=== PATIENT | female | born 1995 | race Caucasian/White ===

== ENCOUNTER 2017-05-18 08:16 | Emergency (ER) | payer BC, OTHER ==
[2017-05-18] MEDS ORDERED: Ondansetron HCl/PF 4 MG/2 ML Vial ONE (08:40)
[2017-05-18 08:49] LABS: Bacteria/HPF 3+ HPF (None Seen); Bilirubin Small (Negative); Blood, Urine Negative (Negative); Clarity Slightly Cloudy (Clear); Glucose, Urine (Dipstick) Negative (Negative); Leukocyte Negative (Negative); Nitrite Negative (Negative); Protein, Urine (Dipstick) 30 mg/dL (Neg-Trace); RBC/HPF 0-3 HPF (0-3); Specific Gravity, Urine Greater than 1.035 (1.002-1.036); Urobilinogen 0.2 mg/dL (0.2-1.0)
[2017-05-18 08:50] LABS: Crystals/HPF None Seen HPF (Negative); Hyaline Casts/LPF NONE SEEN LPF (0-3 Hyaline)
[2017-05-18 08:52] LABS: #Basophils 0.1 thou/uL (0.0-0.2); #Lymphocytes 0.5 thou/uL (1.20-3.40); #Monocytes 0.2 thou/uL (0.11-0.59); %Basophils 0.5 % (0.0-1.0); %Eosinophils 0.1 % (0.0-10.0); %Lymphocytes 4.4 % (28.0-48.0); %Monocytes 2.1 % (0.0-4.0); Hemoglobin 11.4 g/dL (12.0-16.0); Mean Corpuscular HGB CONC 33.4 g/dL (32.0-36.0); Mean Corpuscular Hemoglobin 30.7 pg (25.0-35.0); Mean Platelet Volume 9.5 fL (7.4-10.4); Platelet Count 178 thou/uL (130-400); RBC Distribution Width 11.4 % (11.5-14.5); White Blood Cell (WBC) Count 11.8 thou/uL (4.8-10.8)
[2017-05-18 08:59] LABS: BHCG - Serum Negative (NEGATIVE); Pregs Control Background? CLEAR/WHITE (CLR/WHITE); Pregs Control Bar Appear? YES (CONTROL BAR)
[2017-05-18] MEDS ORDERED: Iopamidol 370 76% 100 ML VIAL ONE (09:00)
[2017-05-18] MEDS ORDERED: Fentanyl 100 MCG/2 ML VIAL ONE (09:05)
[2017-05-18 09:06] LABS: ALT (SGPT) 12 U/L (8-55); AST (SGOT) 23 U/L (5-34); Albumin 4.2 g/dL (3.5-5.0); Alkaline Phosphatase 49 U/L (40-150); Anion Gap 15 mmol/L (10-20); BUN (Urea Nitrogen) 20 mg/dL (7.0-18.7); Bilirubin, Total 0.5 mg/dL (0.2-1.2); Calc. Creatinine Clearance 0 mL/min (70-130); Carbon Dioxide 21 mmol/L (22-29); Chloride 107 mmol/L (98-107); Estimated GFR-MDRD 83; Glucose 135 mg/dL (70-105); Potassium 3.8 mmol/L (3.5-5.1); Protein, Total 7.2 g/dL (6.0-8.3); Sodium 139 mmol/L (136-145)
[2017-05-18] MEDS ORDERED: cefTRIAXone\\ROCEPHIN 1 GM VIAL ONE (09:21)
[2017-05-18] MEDS ORDERED: Sodium Chloride 0.9% 100 ML ONE (09:21)
[2017-05-18] MEDS ORDERED: Promethazine HCl 25 MG/ML VIAL ONE (10:13)
[2017-05-18] MEDS ORDERED: Ketorolac Tromethamine 30 MG/ML VIAL ONE (10:46)
[2017-05-18] MEDS ORDERED: HYDROcodone/Acetaminophen 5/325 mg Tablet ONE (10:46)
--- NOTE | 2017-05-18 12:19 | CT ---
ABDOMEN AND PELVIC CT SCAN WITH IV CONTRAST: HISTORY: A 21-year-old female with a history of abdominal pain, right flank pain, and vomiting. FINDINGS: The lung bases are clear. There is some minimal periportal vein edematous changes consistent with so me nonspecific liver periportal edema. The gallbladder shows no evidence of gallstones. The pancrea s and spleen and adrenal glands are unremarkable. The left kidney is normal. There is perirenal flu id around the right kidney with some hydronephrosis as well as decreased or delayed function of the r ight kidney. There is a 0.4 cm diameter calcification in the expected location of the distal right u reter, certainly worrisome for an obstructing distal right ureteral calculus. There is moderate veto d fecal material throughout the colon. There is a very redundant colon including a very low-lying tr ansverse colon extending well into the pelvis. Moderate gaseous distention of the stomach. No CT ev idence for acute appendicitis. Unremarkable uterus and adnexal regions. IMPRESSION: Evidence for an obstructing distal right ureteral calculus with delayed or decreased concentration an d excretion of the right kidney with some perirenal fat stranding. Liver periportal edema, minimal. No CT evidence for acute appendicitis. Considerably tortuous fecal-filled colon including a very low -lying transverse colon extending low into the pelvis. POS: [facility]
[2017-05-21 01:02] LABS: Chlamydia by PCR Not Detected (NotDetected); GC by PCR Not Detected (NotDetected)
== END 2017-05-18 11:18 | disposition home or self-care (01) ==
LOC: SCSER 08:16
DX: N13.2 Hydronephrosis with renal and ureteral calculous obstruction (principal); N39.0 Urinary tract infection, site not specified; F98.8 Other specified behavioral and emotional disorders with onset usually occurring in childhood and adolescence
CPT/HCPCS: 51701; 74177; 80053; 81003; 81015; 84703; 85025; 87086; 87491; 87591; 96361; 96365; 96367; 96375; A4353; J0696; J1885; J2405; J2550; J3010; J7050

== ENCOUNTER 2017-08-13 21:34 | Emergency (ER) | payer OTHER ==
[2017-08-13] MEDS ORDERED: Adacel (T-DAP) 0.5 ML VIAL ONE (22:31)
[2017-08-13] MEDS ORDERED: Rabies Vaccine Human 2.5 UNITS VIAL IM ONE (23:00)
== END 2017-08-13 23:39 | disposition home or self-care (01) ==
LOC: ERS 21:34
DX: S71.151A Open bite, right thigh, initial encounter (principal); F98.8 Other specified behavioral and emotional disorders with onset usually occurring in childhood and adolescence; W54.0XXA Bitten by dog, initial encounter
CPT/HCPCS: 90375; 90471; 90472; 90675; 90715; 96372

== ENCOUNTER → 2017-08-23 | Day surgery (SDC) | payer OTHER ==
[~2017-08-23] MED LIST: Rabies Vaccine Human 2.5 UNITS VIAL IM ONE
== END ==
LOC: ER/OP 15:38
DX: Z23 Encounter for immunization (principal)
CPT/HCPCS: 90471; 90675

== ENCOUNTER 2017-09-19 17:57 | Emergency (ER) | payer OTHER ==
[2017-09-19] MEDS ORDERED: Rabies Vaccine Human 2.5 UNITS VIAL IM ONE (18:15)
== END 2017-09-19 18:53 | disposition home or self-care (01) ==
LOC: ERS 17:57
DX: Z23 Encounter for immunization (principal); F98.8 Other specified behavioral and emotional disorders with onset usually occurring in childhood and adolescence
CPT/HCPCS: 90471; 90675

== ENCOUNTER 2018-05-11 11:09 | Emergency (ER) | payer OTHER | END 2018-05-11 13:25 | disposition home or self-care (01) | LOC: SCSER 11:09 | DX: T76.21XA Adult sexual abuse, suspected, initial encounter (principal); F98.8 Other specified behavioral and emotional disorders with onset usually occurring in childhood and adolescence | CPT/HCPCS: 99282 ==